=== PATIENT | male | born 2000 | race African-American/Black ===

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

== ENCOUNTER 2021-09-13 17:53 | Emergency (ER) | payer OTHER ==
[~2021-09-13] VITALS: Ht 182.9 cm; Wt 138.0 kg
[2021-09-13] MEDS ORDERED: ACETAMINOPHEN 325MG TABLET PO ONE (20:00)
[2021-09-13] MEDS ORDERED: ACETAMINOPHEN 325MG TABLET PO NR (23:00)
[2021-09-13 23:50] VITALS: BP 135/86
== END 2021-09-13 23:52 | disposition home or self-care (01) ==
LOC: ER 17:53
DX: S63.92XA Sprain of unspecified part of left wrist and hand, initial encounter (principal); F12.10 Cannabis abuse, uncomplicated; Z88.0 Allergy status to penicillin; W22.8XXA Striking against or struck by other objects, initial encounter; Y93.89 Activity, other specified; Y92.018 Other place in single-family (private) house as the place of occurrence of the external cause
CPT/HCPCS: 73110; 73130; 99284

== ENCOUNTER 2023-07-17 19:40 | Emergency (ER) | payer MEDICAID, OTHER ==
[~2023-07-17] VITALS: Ht 188 cm; Wt 118.0 kg
[2023-07-17 19:45] VITALS: BP 160/92; PULSE 88; RESP 16; TEMP 98.3; O2SAT 98
== END 2023-07-17 23:23 | disposition home or self-care (01) ==
LOC: ER 19:40
DX: F20.9 Schizophrenia, unspecified (principal); F31.9 Bipolar disorder, unspecified; F12.90 Cannabis use, unspecified, uncomplicated
CPT/HCPCS: 99284

== ENCOUNTER 2023-09-30 18:42 | Inpatient (IN) | payer MEDICAID ==
[~2023-09-30] VITALS: Ht 185.4 cm; Wt 134.0 kg
[2023-09-30 20:40] LABS: HEMATOCRIT. 48.5 % (42.0-52.0); HEMOGLOBIN. 16.3 g/dL (14.0-18.0); MEAN CORPUSCULAR HEMOGLOBIN 28.3 pg (28.0-32.0); MEAN CORPUSCULAR HGB CONC 33.7 g/dL (31.0-37.0); MEAN CORPUSCULAR VOLUME 83.9 fL (80.0-94.0); MEAN PLATELET VOLUME 10.8 fl (7.4-10.4); PLATELET 240 x1000/uL (130-400); RED BLOOD CELL COUNT 5.78 mill/uL (4.7-6.1); RED CELL DISTRIBUTION WIDTH 14.5 % (11.6-14.6)
[2023-09-30 20:42] LABS: DIFFERENTIAL COMMENT 1
[2023-09-30 20:53] LABS: CHLORIDE 105 mEq/L (98-107); POTASSIUM 3.6 mEq/L (3.5-5.1); SODIUM 136 mEq/L (136-145)
[2023-09-30 20:54] LABS: CALCIUM 9.1 mg/dL (8.7-10.4); CARBON DIOXIDE 11 mEq/L (21-32)
[2023-09-30 20:59] LABS: CREATININE 1.5 mg/dL (0.6-1.3)
[2023-09-30 21:00] LABS: TROPONIN I HIGH SENSITIVITY 5 ng/L (3.0-53)
[2023-09-30 21:01] LABS: ALANINE AMINOTRANSFERASE 11 IU/L (10-49); ALBUMIN 4.7 g/dL (3.2-4.8); ASPARTATE AMINOTRANSFERASE 10 IU/L (<34); BILIRUBIN DIRECT 0.1 mg/dL (<=3.0)
[2023-09-30 21:02] LABS: BETA HYDROXYBUTYRATE 8.8 mMol/L (0.0-0.3); BILIRUBIN TOTAL 0.5 mg/dL (0.1-1.0); ETHANOL BLOOD < 10 mg/dL (<10); GLUCOSE 352 mg/dL (70-105); PROTEIN TOTAL 8.3 g/dL (6.0-8.3); UREA NITROGEN BLOOD < 5 mg/dL (9-23)
[2023-09-30 21:03] LABS: PLATELET ESTIMATE NORMAL
[2023-09-30] MEDS: SODIUM CHLORIDE 0.9% 1,000 ML IV ONE (21:09)
[2023-09-30] MEDS ORDERED: INSULIN REGULAR 100U/100ML PMX 100 ML IV SCH ×2 (21:30)
[2023-09-30] MEDS ORDERED: BLOOD SUGAR DIAGNOSTIC STRIP TEST PRN ×2 (21:30→23:00)
[2023-09-30] MEDS ORDERED: SODIUM CHLORIDE 0.9% 1,000 ML IV SCH (21:30)
[2023-09-30] MEDS ORDERED: KCL 20MEQ/100ML PREMIX 100 ML IV PRN ×2 (21:30→22:45)
[2023-09-30] MEDS ORDERED: BLOOD SUGAR DIAGNOSTIC STRIP TEST SCH ×2 (21:30→22:45)
[2023-09-30] MEDS ORDERED: DEXTROSE 50% WATER 50ML SYRINGE IV PRN ×2 (21:30→22:45)
[2023-09-30 21:54] LABS: BG BASE EXCESS -18.2 mmol/L (-2.0-2.0); BG FRACTION INSPIRED OXYGEN 21; BG PCO2 21.7 mmHg (35.0-45.0); BG PH 7.184 (7.350-7.450); BG PO2 116.8 mmHg (75.0-100.0); BG SAMPLE SITE RIGHT BRACHIAL; BG TOTAL HEMOGLOBIN 15.8 g/dL (12.0-18.0); BG VENT MODE ROOM AIR
[2023-09-30 22:45] LABS: CLARITY URINE CLEAR (CLEAR); COLOR URINE YELLOW (YELLOW); GLUCOSE URINE 3+ (NEGATIVE); KETONES URINE 4+ (NEGATIVE); LEUKOCYTE ESTERASE URINE NEGATIVE (NEGATIVE); NITRITE URINE NEGATIVE (NEGATIVE); OCCULT BLOOD URINE TRACE (NEGATIVE); PROTEIN URINE 2+ (NEGATIVE); SPECIFIC GRAVITY URINE 1.043 (1.005-1.030); UROBILINOGEN URINE 0.2 E.U./dL (0.2-1.0)
[2023-09-30] MEDS ORDERED: INSULIN REGULAR (HUMULIN R) 1000UNITS/10ML VIAL IV NR (22:45)
[2023-09-30] MEDS ORDERED: SODIUM PHOSPHATE 15 MMOL in SODIUM CHLORIDE 0.9% 245 ML IV PRN (22:45)
[2023-09-30] MEDS ORDERED: MAGNESIUM 2 G PREMIX 50 ML IV PRN (22:45)
[2023-09-30 22:54] LABS: *AMPHETAMINES SCREEN URINE NEGATIVE (NEGATIVE); *BARBITURATES SCREEN URINE NEGATIVE (NEGATIVE); *BENZODIAZEPINES SCREEN URINE NEGATIVE (NEGATIVE); *COCAINE SCREEN URINE NEGATIVE (NEGATIVE); CANNABINOID URINE SCREEN NEGATIVE (NEGATIVE); ECSTASY MDMA SCREEN URINE NEGATIVE (NEGATIVE); METHADONE URINE SCREEN NEGATIVE (NEGATIVE); OPIATES URINE SCREEN NEGATIVE (NEGATIVE); PHENCYCLIDINE URINE SCREEN NEGATIVE (NEGATIVE)
[2023-09-30] MEDS ORDERED: ACETAMINOPHEN 325MG TABLET PO PRN ×2 (23:00)
[2023-09-30 23:10] LABS: BACTERIA URINE TRACE; RBC URINE 0-2 /hpf (0-2); SQUAMOUS EPITHELIAL CELL URINE RARE /lpf (RARE/1+); WBC URINE 0-2 /hpf (0-2)
[2023-09-30 23:43] LABS: CHLORIDE 109 mEq/L (98-107); POTASSIUM 3.7 mEq/L (3.5-5.1); SODIUM 140 mEq/L (136-145)
[2023-09-30 23:44] LABS: CALCIUM 8.7 mg/dL (8.7-10.4); CARBON DIOXIDE 11 mEq/L (21-32)
[2023-09-30 23:49] LABS: CREATININE 1.2 mg/dL (0.6-1.3); GLUCOSE 303 mg/dL (70-105)
[2023-09-30 23:51] LABS: PHOSPHORUS 2.4 mg/dL (2.5-4.9)
[2023-09-30 23:53] LABS: BG BASE EXCESS -18.3 mmol/L (-2.0-2.0); BG CARBOXYHEMOGLOBIN 0.3 % (0.5-1.5); BG DEOXYHEMOGLOBIN 1.8 % (0.0-5.0); BG FRACTION INSPIRED OXYGEN 21; BG HCO3 ACT 7.2 mmol/L (22.0-26.0); BG OXYGEN SATURATION 98.2 % (92.0-98.5); BG OXYHEMOGLOBIN 97.9 % (94.0-97.0); BG PCO2 18.5 mmHg (35.0-45.0); BG PH 7.205 (7.350-7.450); BG PO2 120.6 mmHg (75.0-100.0); BG SAMPLE SITE LEFT BRACHIAL; BG TOTAL HEMOGLOBIN 16.2 g/dL (12.0-18.0); BG VENT MODE ROOM AIR
[2023-09-30 23:53] LABS: UREA NITROGEN BLOOD < 5 mg/dL (9-23)
[2023-10-01] VITALS (34 sets, daily range): BP systolic 89–132; BP diastolic 43–84; PULSE 53–100; RESP 12–32; TEMP 97.7–98
[2023-10-01] MEDS: INSULIN REGULAR 100U/100ML PMX 100 ML IV SCH ×2 (00:14→12:02)
[2023-10-01 00:40] LABS: CREATINE KINASE 46 IU/L (46-171)
[2023-10-01] MEDS: SODIUM CHLORIDE 0.9% 1,000 ML IV PRN (02:13)
[2023-10-01] MEDS: DEXT 5%/0.9% NACL 1,000 ML IV PRN (03:02)
[2023-10-01 03:40] LABS: CHLORIDE 111 mEq/L (98-107); SODIUM 142 mEq/L (136-145)
[2023-10-01 03:41] LABS: CARBON DIOXIDE 11 mEq/L (21-32)
[2023-10-01 03:46] LABS: CREATININE 1.2 mg/dL (0.6-1.3); GLUCOSE 179 mg/dL (70-105)
[2023-10-01 04:06] LABS: UREA NITROGEN BLOOD < 5 mg/dL (9-23)
[2023-10-01] MEDS: POTASSIUM CHLORIDE 20MEQ/PACKET PO NR (04:58)
[2023-10-01] MEDS ORDERED: DEXTROSE 50% WATER 50ML SYRINGE IV PRN ×3 (05:30→18:00)
[2023-10-01 05:38] LABS: T4 FREE 0.82 ng/dL (0.89-1.76); THYROID STIMULATING HORMONE 1.19 uIU/mL (0.55-4.78)
[2023-10-01] MEDS: POTASSIUM PHOSPHATE 30 MMOL in DEXT 5% WATER 490 ML IV NR (05:56)
[2023-10-01] MEDS: POTASSIUM CHLORIDE 40 MEQ in DEXT 5% WATER 230 ML IV NR (06:34)
[2023-10-01] MEDS: INSULIN LISPRO 100 UNITS/ML SUBCUT SCH ×2 (08:20→18:20)
[2023-10-01] MEDS: ENOXAPARIN 40MG/0.4ML SYR SUBCUT SCH (09:00)
[2023-10-01 09:22] LABS: BG BASE EXCESS -14.8 mmol/L (-2.0-2.0); BG CARBOXYHEMOGLOBIN 0.3 % (0.5-1.5); BG DEOXYHEMOGLOBIN 2.7 % (0.0-5.0); BG HCO3 ACT 11.2 mmol/L (22.0-26.0); BG METHEMOGLOBIN 0.3 % (0.0-1.5); BG OXYGEN SATURATION 97.3 % (92.0-98.5); BG OXYHEMOGLOBIN 96.7 % (94.0-97.0); BG PCO2 27.8 mmHg (35.0-45.0); BG PH 7.223 (7.350-7.450); BG PO2 101.4 mmHg (75.0-100.0); BG SAMPLE SITE RIGHT RADIAL; BG TOTAL HEMOGLOBIN 15.3 g/dL (12.0-18.0); BG VENT MODE ROOM AIR
[2023-10-01] MEDS: BLOOD SUGAR DIAGNOSTIC STRIP TEST SCH ×3 (09:41→18:13)
[2023-10-01 10:02] LABS: CHLORIDE 111 mEq/L (98-107); POTASSIUM 4.6 mEq/L (3.5-5.1); SODIUM 140 mEq/L (136-145)
[2023-10-01 10:03] LABS: CARBON DIOXIDE 12 mEq/L (21-32)
[2023-10-01 10:08] LABS: CREATININE 1.2 mg/dL (0.6-1.3); GLUCOSE 250 mg/dL (70-105)
[2023-10-01 10:10] LABS: PHOSPHORUS 3.6 mg/dL (2.5-4.9)
[2023-10-01 10:16] LABS: UREA NITROGEN BLOOD < 5 mg/dL (9-23)
[2023-10-01] MEDS ORDERED: INSULIN REGULAR (DRIP) 100 UNITS in SODIUM CHLORIDE 0.9% 99 ML IV SCH (10:30)
[2023-10-01] MEDS ORDERED: KCL 20MEQ/100ML PREMIX 100 ML IV PRN (11:00)
[2023-10-01] MEDS ORDERED: SODIUM PHOSPHATE 15 MMOL in SODIUM CHLORIDE 0.9% 245 ML IV PRN (11:00)
[2023-10-01] MEDS ORDERED: BLOOD SUGAR DIAGNOSTIC STRIP TEST PRN (11:00)
[2023-10-01] MEDS ORDERED: MAGNESIUM 2 G PREMIX 50 ML IV PRN (11:00)
[2023-10-01] MEDS: DEXT 5%/0.9% NACL 1,000 ML IV SCH (11:00)
[2023-10-01] MEDS ORDERED: METF-414 PO (12:28)
[2023-10-01 16:51] LABS: CHLORIDE 111 mEq/L (98-107); POTASSIUM 3.2 mEq/L (3.5-5.1); SODIUM 140 mEq/L (136-145)
[2023-10-01 16:52] LABS: CARBON DIOXIDE 16 mEq/L (21-32)
[2023-10-01 16:57] LABS: CREATININE 1.1 mg/dL (0.6-1.3); GLUCOSE 249 mg/dL (70-105)
[2023-10-01 16:59] LABS: PHOSPHORUS 1.3 mg/dL (2.5-4.9)
[2023-10-01 17:02] LABS: UREA NITROGEN BLOOD < 5 mg/dL (9-23)
[2023-10-01] MEDS: POTASSIUM CHLORIDE 40 MEQ in SODIUM CHLORIDE 0.9% 230 ML IV PRN (17:33)
[2023-10-01] MEDS: ONDANSETRON HCL 4MG/2ML INJ IV PRN (21:22)
[2023-10-01] MEDS: INSULIN GLARGINE 100 UNITS/ML SUBCUT SCH (21:23)
[2023-10-01 21:30] LABS: CHLORIDE 109 mEq/L (98-107); POTASSIUM 3.4 mEq/L (3.5-5.1); SODIUM 141 mEq/L (136-145)
[2023-10-01 21:31] LABS: CARBON DIOXIDE 17 mEq/L (21-32)
[2023-10-01 21:32] LABS: CALCIUM 9.2 mg/dL (8.7-10.4)
[2023-10-01 21:36] LABS: CREATININE 1.1 mg/dL (0.6-1.3); GLUCOSE 265 mg/dL (70-105)
[2023-10-01 21:40] LABS: UREA NITROGEN BLOOD < 5 mg/dL (9-23)
[2023-10-02] VITALS (24 sets, daily range): BP systolic 74–145; BP diastolic 48–111; PULSE 59–79; RESP 11–21; TEMP 97.4–98.2
[2023-10-02] MEDS: POTASSIUM CHLORIDE 20MEQ/PACKET PO NR (02:57)
[2023-10-02] MEDS: POTASSIUM PHOSPHATE 20 MMOL in DEXT 5% WATER 243.3333 ML IV NR (02:58)
[2023-10-02 05:44] LABS: CHLORIDE 105 mEq/L (98-107); POTASSIUM 3.5 mEq/L (3.5-5.1); SODIUM 137 mEq/L (136-145)
[2023-10-02 05:45] LABS: CARBON DIOXIDE 17 mEq/L (21-32)
[2023-10-02 05:46] LABS: CALCIUM 9.2 mg/dL (8.7-10.4)
[2023-10-02 05:50] LABS: CREATININE 1.1 mg/dL (0.6-1.3); GLUCOSE 311 mg/dL (70-105)
[2023-10-02 05:52] LABS: BASOPHILS % 0.6 % (0.0-2.0); DIFFERENTIAL COMMENT 0; EOSINOPHILS % 0.7 % (0.0-5.0); HEMATOCRIT. 41.1 % (42.0-52.0); LYMPHOCYTES % 33.2 % (20.0-50.0); MEAN CORPUSCULAR HEMOGLOBIN 28.1 pg (28.0-32.0); MEAN CORPUSCULAR HGB CONC 34.2 g/dL (31.0-37.0); MEAN CORPUSCULAR VOLUME 82.3 fL (80.0-94.0); MEAN PLATELET VOLUME 10.7 fl (7.4-10.4); MONOCYTES % 14.1 % (2.0-8.0); NEUTROPHILS % 51.4 % (40.0-76.0); PLATELET 212 x1000/uL (130-400); RED BLOOD CELL COUNT 4.99 mill/uL (4.7-6.1); RED CELL DISTRIBUTION WIDTH 14.1 % (11.6-14.6); UREA NITROGEN BLOOD < 5 mg/dL (9-23); WHITE BLOOD COUNT 13.2 x1000/uL (4.5-11.0)
[2023-10-02] MEDS: SODIUM CHLORIDE 0.9% 1,000 ML IV SCH (07:00)
[2023-10-02] MEDS: INSULIN GLARGINE 100 UNITS/ML SUBCUT SCH (08:34)
[2023-10-02] MEDS: INSULIN LISPRO 100 UNITS/ML SUBCUT SCH ×2 (08:35→21:00)
[2023-10-03] VITALS (16 sets, daily range): BP systolic 100–131; BP diastolic 50–79; PULSE 56–94; RESP 8–22; TEMP 97.2–98.5
[2023-10-03 06:09] LABS: BASOPHILS % 0.7 % (0.0-2.0); EOSINOPHILS % 1.2 % (0.0-5.0); HEMATOCRIT. 38.1 % (42.0-52.0); HEMOGLOBIN. 13.2 g/dL (14.0-18.0); LYMPHOCYTES % 43.2 % (20.0-50.0); MEAN CORPUSCULAR HGB CONC 34.8 g/dL (31.0-37.0); MEAN CORPUSCULAR VOLUME 80.6 fL (80.0-94.0); MEAN PLATELET VOLUME 10.5 fl (7.4-10.4); MONOCYTES % 10.3 % (2.0-8.0); NEUTROPHILS % 44.6 % (40.0-76.0); PLATELET 181 x1000/uL (130-400); RED BLOOD CELL COUNT 4.72 mill/uL (4.7-6.1); RED CELL DISTRIBUTION WIDTH 13.9 % (11.6-14.6); WHITE BLOOD COUNT 8.7 x1000/uL (4.5-11.0)
[2023-10-03 06:12] LABS: CHLORIDE 100 mEq/L (98-107); SODIUM 136 mEq/L (136-145)
[2023-10-03 06:13] LABS: CALCIUM 8.9 mg/dL (8.7-10.4); CARBON DIOXIDE 22 mEq/L (21-32)
[2023-10-03 06:18] LABS: CREATININE 0.9 mg/dL (0.6-1.3); GLUCOSE 230 mg/dL (70-105)
[2023-10-03 06:22] LABS: UREA NITROGEN BLOOD < 5 mg/dL (9-23)
[2023-10-03 06:24] LABS: POTASSIUM 2.7 mEq/L (3.5-5.1)
[2023-10-03] MEDS ORDERED: INSULIN LISPRO 100 UNITS/ML SUBCUT SCH (07:50)
[2023-10-03] MEDS ORDERED: POTASSIUM CHLORIDE 20MEQ TABLET SR PO ONE (08:30)
[2023-10-03] MEDS: POTASSIUM CHLORIDE 20MEQ TABLET SR PO NR (09:05)
[2023-10-03] MEDS: INSULIN GLARGINE 100 UNITS/ML SUBCUT SCH ×2 (09:52→22:08)
[2023-10-03] MEDS ORDERED: MECLIZINE 25MG TABLET PO PRN (14:30)
[2023-10-03] MEDS: POTASSIUM CHLORIDE 20MEQ TABLET SR PO SCH (21:58)
[2023-10-03] MEDS: SODIUM CHLORIDE 0.9% IV NR (22:52)
[2023-10-03] MEDS: POTASSIUM PHOSPHATE IV NR (22:52)
[2023-10-04] VITALS: BP 134/90; PULSE 94; RESP 18; TEMP 97.4
[2023-10-04 04:00] VITALS: BP 113/77; RESP 20; TEMP 98
[2023-10-04] MEDS: INSULIN LISPRO 100 UNITS/ML SUBCUT SCH (06:44)
[2023-10-04 07:24] LABS: CHLORIDE 101 mEq/L (98-107); SODIUM 136 mEq/L (136-145)
[2023-10-04 07:25] LABS: CALCIUM 8.8 mg/dL (8.7-10.4); CARBON DIOXIDE 23 mEq/L (21-32)
[2023-10-04 07:28] LABS: HEMATOCRIT 39.1 % (42.0-52.0); HEMOGLOBIN 13.4 g/dL (14.0-18.0); MEAN CORPUSCULAR HEMOGLOBIN 27.8 pg (28.0-32.0); MEAN CORPUSCULAR HGB CONC 34.3 g/dL (31.0-37.0); MEAN CORPUSCULAR VOLUME 81.1 fL (80.0-94.0); PLATELET 167 x1000/uL (130-400); RED BLOOD CELL COUNT 4.82 mill/uL (4.7-6.1); RED CELL DISTRIBUTION WIDTH 13.8 % (11.6-14.6); WHITE BLOOD COUNT 9.7 x1000/uL (4.5-11.0)
[2023-10-04 07:30] LABS: CREATININE 0.9 mg/dL (0.6-1.3); GLUCOSE 310 mg/dL (70-105); UREA NITROGEN BLOOD 6 mg/dL (9-23)
[2023-10-04 07:32] LABS: PHOSPHORUS 4.1 mg/dL (2.5-4.9)
[2023-10-04 08:00] VITALS: BP 115/62; PULSE 70; RESP 20; TEMP 98
[2023-10-04 12:00] VITALS: BP 103/61; PULSE 66; RESP 20; TEMP 98
[2023-10-04 12:43] VITALS: BP 103/61; PULSE 66; RESP 20; TEMP 98
[2023-10-04 14:32] VITALS: BP 115/62; PULSE 70; TEMP 98; O2SAT 100
[2023-10-04] MEDS ORDERED: ARIPIPRAZOLE 5MG TABLET PO SCH (17:00)
== END 2023-10-04 16:00 | disposition home or self-care (01) | DRG 420 ==
LOC: ER 18:42 → CVICU 21:54 → 6WST 10-03 10:13
PROVIDERS: ADMIT Hospitalist; ATTEND Hospitalist
DX: E10.10 Type 1 diabetes mellitus with ketoacidosis without coma (principal); J96.00 Acute respiratory failure, unspecified whether with hypoxia or hypercapnia; N17.9 Acute kidney failure, unspecified; E10.21 Type 1 diabetes mellitus with diabetic nephropathy; E83.39 Other disorders of phosphorus metabolism; E86.9 Volume depletion, unspecified; Z68.41 Body mass index [BMI] 40.0-44.9, adult; E66.9 Obesity, unspecified; R35.89 Other polyuria; Z91.148 Patient's other noncompliance with medication regimen for other reason; E87.6 Hypokalemia; Z88.0 Allergy status to penicillin; F17.290 Nicotine dependence, other tobacco product, uncomplicated; F25.9 Schizoaffective disorder, unspecified; F31.9 Bipolar disorder, unspecified; Z80.0 Family history of malignant neoplasm of digestive organs; Z82.49 Family history of ischemic heart disease and other diseases of the circulatory system; Z83.3 Family history of diabetes mellitus
CPT/HCPCS: 36415; 36600; 71045; 76700; 80048; 80051; 80061; 80076; 80305; 80320; 81003; 82010; 82375; 82550; 82805; 82947; 82962; 83036; 83605; 83735; 83930; 84100; 84145; 84439; 84443; 84481; 84484; 85025; 85027; 93005; 93970; 97161; 97165; 99291; J1650; J1815; J2405; J3480; J3490; J7030; J7040; J7050; J7060; G0480